=== PATIENT | female | born 1950 | race Caucasian/White ===

== ENCOUNTER → 2018-07-25 | Outpatient (CLI) | payer MEDICARE ==
[~2018-07-25] MED LIST: Anastrozole1 GM MC; Anastrozole1 GM PO; BUPR150ER PO; CHOL10002 PO; ESCI5 PO; FISH1000 PO; Glucosamine Ch1 EAC3 PO; LANS30EC PO; NAPR220 PO; SIMV40 PO
== END | disposition home or self-care (01) ==
LOC: PLD 11:07 → LAB SHORT 11:07
DX: D23.71 Other benign neoplasm of skin of right lower limb, including hip (principal)
CPT/HCPCS: 88305

== ENCOUNTER 2019-12-05 12:24 | Day surgery (SDC) | payer MEDICARE ==
[~2019-12-05] VITALS: Ht 162.6 cm; Wt 83.6 kg
[~2019-12-05 12:24] MED LIST changes: +OMEP20ER PO; +PREVAGEN PO
== END 2019-12-05 14:47 | disposition home or self-care (01) ==
LOC: ORSCSDS 12:24
PROVIDERS: Surgery
PROC: 0DJD8ZZ Inspection of Lower Intestinal Tract, Via Natural or Artificial Opening Endoscopic (ICD-10-PCS; principal; 2019-12-05 13:30)
DX: Z12.11 Encounter for screening for malignant neoplasm of colon (principal); Z86.010 Personal history of colon polyps; F32.9 Major depressive disorder, single episode, unspecified; E78.5 Hyperlipidemia, unspecified; G47.30 Sleep apnea, unspecified; Z87.11 Personal history of peptic ulcer disease; E66.9 Obesity, unspecified; Z68.32 Body mass index [BMI] 32.0-32.9, adult; Z87.891 Personal history of nicotine dependence; Z79.899 Other long term (current) drug therapy
CPT/HCPCS: J2704; J7120

== ENCOUNTER → 2021-01-20 | Outpatient (CLI) | payer MEDICARE ==
[2021-01-22 16:11] LABS: METANEPHRINE, UR 65 ug/L (Undefined)
[2021-01-23 07:11] LABS: DOPAMINE, URINE 132 ug/L (Undefined)
[2021-01-25 11:09] LABS: CREATININE, URINE 82.6 mg/dL (Not Estab.)
== END | disposition home or self-care (01) ==
LOC: LAB 14:34 → LAB SHORT 14:34 → LAB FUT 01-10 12:10
PROVIDERS: Internal Medicine
DX: D35.02 Benign neoplasm of left adrenal gland (principal)
CPT/HCPCS: 81050; 82384

== ENCOUNTER 2021-02-11 10:44 | Day surgery (SDC) | payer MEDICARE ==
[~2021-02-11] VITALS: Ht 162.6 cm; Wt 76.7 kg
[2021-02-11] MEDS ORDERED: ALPR.25 (11:18)
--- NOTE | 2021-02-11 11:37 | NUR ---
Ambulatory in Day Surgery History, Chart, Medications and Allergies reviewed before start of procedure.Lungs clear T/O to Auscultation. Patient confirms NPO status and agrees with scheduled surgery.
--- NOTE | 2021-02-11 13:17 | NUR ---
Discharge instructions reviewed with patient. Patient verbalizes understanding. Copy given to patient to take home. Discharged via wheelchair to private car for ride home.
--- NOTE | 2021-02-11 13:25 | NUR ---
02/11/21 1325 Simran Oconnor History, Chart, Medications and Allergies reviewed before start of procedure. Patient confirms NPO status and agrees with scheduled surgery. 3-LEAD EKG REVIEWED WITH PHYSICIAN PRIOR TO START OF PROCEDURE. MONITOR INTACT WITH CONTINUOUS PULSE OXIMETRY AND INTERMITTENT BP. PATIENT DETERMINED TO BE ASA APPROPRIATE FOR PROPOFOL SEDATION PRIOR TO START OF PROCEDURE BY DR. AMBRIZ
== END 2021-02-11 13:15 | disposition home or self-care (01) ==
LOC: ORSCMMR 10:44 → ORSCSDS 13:15 → ORD 13:15 → ORSCMMR 13:15
PROVIDERS: Internal Medicine Gastroenterology
PROC: 0DB98ZX Excision of Duodenum, Via Natural or Artificial Opening Endoscopic, Diagnostic (ICD-10-PCS; principal; 2021-02-11 12:00)
PROC: 0DB78ZX Excision of Stomach, Pylorus, Via Natural or Artificial Opening Endoscopic, Diagnostic (ICD-10-PCS; principal; 2021-02-11 12:00)
DX: R13.10 Dysphagia, unspecified (principal); R10.13 Epigastric pain; K31.7 Polyp of stomach and duodenum; K21.9 Gastro-esophageal reflux disease without esophagitis; Z79.899 Other long term (current) drug therapy
CPT/HCPCS: 88305; 88342; J2704; J7120

== ENCOUNTER 2022-11-28 07:40 | Emergency (ER) | payer MEDICARE ==
[~2022-11-28] VITALS: Ht 162.6 cm; Wt 79.4 kg
[~2022-11-28 07:40] MED LIST changes: +ALPR.25; +OXAYDO5 M1 PO
[2022-11-28 08:45] VITALS: BP 113/64
[2022-11-28] MEDS ORDERED: NAPROXEN250 M1 PO ×2 (09:28→09:29)
[2022-11-28] MEDS ORDERED: Cyclobenzaprine5 MG PO ×2 (09:28→09:29)
== END 2022-11-28 09:45 | disposition home or self-care (01) ==
LOC: ER 07:40
DX: M54.16 Radiculopathy, lumbar region (principal); Z85.3 Personal history of malignant neoplasm of breast; Z88.0 Allergy status to penicillin; Z79.899 Other long term (current) drug therapy; Z87.891 Personal history of nicotine dependence
CPT/HCPCS: 72100; 96374; 99283-25; A9270; J1885

== ENCOUNTER → 2023-05-17 | Outpatient (CLI) | payer MEDICARE ==
[~2023-05-17] MED LIST changes: +Cyclobenzaprine5 MG PO; +NAPROXEN250 M1 PO
== END | disposition home or self-care (01) ==
LOC: LAB SHORT 14:38 → LAB 14:38
DX: L98.5 Mucinosis of the skin (principal); L57.0 Actinic keratosis; I87.2 Venous insufficiency (chronic) (peripheral)
CPT/HCPCS: 88305; 88313

== ENCOUNTER → 2024-01-10 | Outpatient (CLI) | payer MEDICARE ==
[2024-01-10 10:52] LABS: Source, Urine Clean Catch
[2024-01-10 13:24] LABS: Appearance, Urine Clear (Clear); Bilirubin, Urine Neg (Neg); Blood, Urine Neg (Neg); Color, Urine Yellow (P-Yellow); Glucose Qualitative, Urine Neg (Neg); Ketones, Urine Neg (Neg); Leukocyte Esterase, Urine Neg (Neg); Nitrite, Urine Neg (Neg); Protein, Urine Neg (Neg); Urobilinogen, Urine NORM (Normal); pH, Urine 6.5 (5.0-8.0)
== END | disposition home or self-care (01) ==
LOC: LAB 10:49 → LAB SHORT 10:49 → EDSTATUS 12-30 12:15 → LAB FUT 12-30 12:15
PROVIDERS: Internal Medicine
DX: R31.29 Other microscopic hematuria (principal)
CPT/HCPCS: 81003

== ENCOUNTER 2024-08-23 08:43 | Day surgery (SDC) | payer MEDICARE ==
[~2024-08-23] VITALS: Ht 160 cm; Wt 79.4 kg
[~2024-08-23 08:43] MED LIST changes: +Balanced Salt Epinephrine Irrigation Solution 500 mL IR SCH; +Diazepam 5 MG Tab PO PRN; +Diazepam 5 MG Tab PO SCH; +Lidocaine HCl/Pf 1% 5 ML VIAL XX SCH; +Moxifloxacin HCL 0.5 MG/0.1 ML 0.4MLSYR LEFTEYE SCH; +Ondansetron 4 MG SoluTab MM PRN; +PHENYLEPHRINE\\TROPICAMIDE\\TETRACAINE OPHTHALMIC DILATING SOLN LEFTEYE PRN; +Povidone-Iodine 450 DROP/30 ML Solution LEFTEYE SCH; +Povidone-Iodine 450 DROP/30 ML Solution ONE; +Tetracaine HCl/Pf 0.5% Opth Soln 4 ml ONE; +Triamcinolone Inj Susp 40 MG / ML 1ML Vial INJ SCH; +Triamcinolone Inj Susp 40 MG / ML 1ML Vial ONE
[2024-08-23] MEDS ORDERED: Diazepam 10 MG Tab ONE (08:46)
--- NOTE | 2024-08-23 09:27 | NUR ---
08/23/24 0927 Lilia De La Rosa PT STATES ANXIETY LEVEL IN PREOP BEFORE 10MG PO VALIUM IS 2/10. CALL LIGHT IN HAND. CONT PULSE OX MON IN PLACE.
[2024-08-23] MEDS ORDERED: Tetracaine HCl 0.5% Opth Soln 15 ml LEFTEYE ONE (09:50)
--- NOTE | 2024-08-23 09:53 | NUR ---
08/23/24 0953 Kalli Begum N 78 99 ON 8L BLOW BY O2 18 158/78 PT STATES SHE IS COMFORTABLE, NO SIGNS OF DISTRESS.
[2024-08-23] MEDS ORDERED: Tetracaine HCl/Pf 0.5% Opth Soln 4 ml ONE (09:58)
[2024-08-23 10:13] VITALS: BP 148/86
== END 2024-08-23 10:26 | disposition home or self-care (01) ==
LOC: ORSCSDS 08:43
PROVIDERS: Ophthalmology
PROC: 08RK3JZ Replacement of Left Lens with Synthetic Substitute, Percutaneous Approach (ICD-10-PCS; principal; 2024-08-23 10:00)
DX: H25.813 Combined forms of age-related cataract, bilateral (principal); H43.813 Vitreous degeneration, bilateral; H35.3131 Nonexudative age-related macular degeneration, bilateral, early dry stage; G47.33 Obstructive sleep apnea (adult) (pediatric); K21.9 Gastro-esophageal reflux disease without esophagitis; F41.9 Anxiety disorder, unspecified; F32.A Depression, unspecified; Z79.899 Other long term (current) drug therapy
CPT/HCPCS: A9270; J3301; V2632